=== PATIENT | male | born 1955 | race Hispanic/Latino ===

== ENCOUNTER 2016-05-30 10:24 | Day surgery (SDC) | payer MEDICARE ==
[2016-02-11 12:04] VITALS: BMI 29.4
[2016-05-30] MEDS ORDERED: Propofol 10 mg/ml Inj (20 ML) ONE (11:39)
[2016-05-30] MEDS ORDERED: Lactated Ringer's 1,000 ML IV SCH (12:00)
[2016-05-31 15:58] VITALS: TEMP 97.7
[2016-05-31 15:59] VITALS: BP 133/88; PULSE 64; RESP 20; O2SAT 100
== END 2016-05-30 13:09 | disposition home or self-care (01) ==
LOC: ENDO 10:24
PROVIDERS: ATTEND Internal Medicine Gastroenterology
DX: K21.0 Gastro-esophageal reflux disease with esophagitis (principal); K44.9 Diaphragmatic hernia without obstruction or gangrene; K29.70 Gastritis, unspecified, without bleeding; J44.9 Chronic obstructive pulmonary disease, unspecified
CPT/HCPCS: 43239; 88305; 88312; 88342; J2704; J7040; J7120

== ENCOUNTER 2017-04-10 09:16 | Day surgery (SDC) | payer MEDICARE ==
[2017-03-14 10:08] VITALS: BMI 30.4
[2017-04-10] MEDS ORDERED: Propofol 10 mg/ml Inj (20 ML) ONE (11:10)
[2017-04-10] MEDS ORDERED: Sodium Chloride 0.9% 1,000 ML IV SCH (11:15)
[2017-04-10] MEDS ORDERED: Etomidate 20 mg/10ml Inj IV ONE (11:22)
[2017-04-10 15:54] VITALS: BP 137/90; PULSE 59; RESP 14; TEMP 97.4; O2SAT 97
== END 2017-04-10 14:18 | disposition home or self-care (01) ==
LOC: ENDO 09:16
PROVIDERS: ATTEND Internal Medicine Gastroenterology
DX: K31.7 Polyp of stomach and duodenum (principal); K63.5 Polyp of colon; K29.50 Unspecified chronic gastritis without bleeding; K29.80 Duodenitis without bleeding; I89.0 Lymphedema, not elsewhere classified; R19.5 Other fecal abnormalities; J44.9 Chronic obstructive pulmonary disease, unspecified
CPT/HCPCS: 43239; 88305; 88312; 88342; J2001; J2704; J3010; J7040 ×2